=== PATIENT | female | born 1975 | race Caucasian/White ===

== ENCOUNTER 2017-12-22 15:31 | Inpatient (IN) | payer MEDICAID, OTHER ==
[2017-12-22] MEDS: HYDROmorphONE 1 MG/ML SYG IV ×2 (16:17→21:23)
[2017-12-22] MEDS: ONDANSETRON 4 MG INJ IV (16:17)
[2017-12-22] MEDS: SOD CHLORIDE 0.9% 1,000 ML IV (16:17)
[2017-12-22 16:54] LABS: ADD MAN DIFF? NO
[2017-12-22 16:58] LABS: WHITE BLOOD COUNT 11.6 10^3/ul (4.8-10.8)
[2017-12-22 16:58] LABS: BASOPHILS % 0.3 % (0.0-2.0); EOSINOPHILS # 0.3 10^3/ul (0.0-0.5); EOSINOPHILS % 2.6 % (0.0-7.0); HEMATOCRIT 35.5 % (37.0-47.0); HEMOGLOBIN 11.5 g/dl (12.0-16.0); LYMPHOCYTES % 17.3 % (15.0-51.0); MEAN CORPUSCULAR HEMOGLOBIN 28.2 pg (29.0-33.0); MEAN CORPUSCULAR HGB CONC 32.4 g/dl (32.0-37.0); MEAN PLATELET VOLUME 11.5 fl (7.4-10.4); MONOCYTE # 0.9 10^3/ul (0.3-0.9); MONOCYTES % 7.8 % (0.0-11.0); NEUTROPHIL # 8.3 10^3/ul (1.6-7.5); NEUTROPHILS % 71.7 % (39.0-77.0); PLATELET COUNT 204 10^3/UL (140-415); RED BLOOD COUNT 4.08 10^6/ul (4.20-5.40); RED CELL DISTRIBUTION WIDTH 13.4 % (11.5-14.5)
[2017-12-22 17:18] LABS: ALANINE AMINOTRANSFERASE 23 IU/L (13-69); ALBUMIN 3.6 g/dl (3.3-4.9); ALBUMIN/GLOBULIN RATIO 1.02; ALKALINE PHOSPHATASE 98 IU/L (42-121); ANION GAP 10 (8-16); ASPARTATE AMINO TRANSFERASE 19 IU/L (15-46); BILIRUBIN,INDIRECT 0.8 mg/dl (0-1.1); BILIRUBIN,TOTAL 0.8 mg/dl (0.2-1.3); BLOOD UREA NITROGEN 18 mg/dl (7-20); CARBON DIOXIDE 31 mmol/L (21-31); CHLORIDE 103 mmol/L (97-110); CREATININE 1.09 mg/dl (0.44-1.00); GLUCOSE 119 mg/dl (70-220); LIPASE 71 U/L (23-300); POTASSIUM 4.2 mmol/L (3.5-5.1); SODIUM 140 mmol/L (135-144); TOTAL PROTEIN 7.1 g/dl (6.1-8.1)
[2017-12-22] MEDS: PIPER-TAZO 3.375 GM IV (PMX) 100 ML IVPB (17:41)
[2017-12-22 18:04] LABS: ADD UMIC YES; UR ASCORBIC ACID NEGATIVE (NEGATIVE); UR BACTERIA FEW /HPF (NONE SEEN); UR BILIRUBIN (Dip) NEGATIVE (NEGATIVE); UR BLOOD (Dip) 1+ mg/dL (NEGATIVE); UR CLARITY SLIGHTLY CLOUDY (CLEAR); UR COLOR YELLOW (YELLOW); UR GLUCOSE (Dip) NEGATIVE (NEGATIVE); UR KETONES (Dip) NEGATIVE (NEGATIVE); UR LEUKOCYTE ESTERASE (Dip) NEGATIVE Leu/ul (NEGATIVE); UR NITRITE (Dip) NEGATIVE (NEGATIVE); UR RBC 1 /HPF (0-5); UR SPECIFIC GRAVITY (Dip) 1.006 (1.003-1.030); UR SQUAMOUS EPITHELIAL CELL FEW /HPF (FEW); UR TOTAL PROTEIN (Dip) 1+ mg/dl (NEGATIVE); UR UROBILINOGEN (Dip) NEGATIVE (NEGATIVE); UR WBC 2 /HPF (0-5)
[2017-12-22] MEDS ORDERED: ACETAMINOPHEN 325 MG TAB PO (18:30)
[2017-12-22] MEDS ORDERED: ONDANSETRON 4 MG INJ IV (18:30)
[2017-12-22] MEDS ORDERED: GLUCOSE GEL 15 GRAM TUBE BUCCAL (19:30)
[2017-12-22] MEDS ORDERED: DEXTROSE 50% 50 ML SYRINGE IV ×2 (19:30)
[2017-12-22] MEDS ORDERED: GLUCOSE GEL 15 GRAM TUBE PO ×2 (19:30)
[2017-12-22] MEDS ORDERED: GLUCAGON 1 MG INJ IM (19:30)
[2017-12-22] MEDS: INSULIN GLARGINE [LANtus] 3 ML PEN SC (22:56)
[2017-12-22] MEDS: INSULIN ASPART [NOVOLOG] 3 ML PEN SC (22:57)
[2017-12-23] MEDS: DEXTROSE 5%-0.45% NACL 1,000 ML IV ×3 (00:14→23:15)
[2017-12-23] MEDS: ACCU-CHEK XX (02:00)
[2017-12-23] MEDS: PIPER-TAZO 3.375 GM IV (PMX) 100 ML IVPB ×4 (02:51→23:15)
[2017-12-23] MEDS: HYDROmorphONE 1 MG/ML SYG IV ×2 (03:55→15:59)
[2017-12-23] MEDS ORDERED: METOCLOPRAMIDE 10 MG INJ (07:00)
[2017-12-23] MEDS ORDERED: DEXAMETHASONE 4 MG/ML 1 ML INJ (07:00)
[2017-12-23] MEDS: INSULIN ASPART [NOVOLOG] 3 ML PEN SC ×7 (08:15→21:00)
[2017-12-23] MEDS ORDERED: LORAZEPAM 2 MG INJ IV (15:00)
[2017-12-23] MEDS: hydrALAzine 20 MG INJ IV (15:17)
[2017-12-23] MEDS ORDERED: MIDAZOLAM 1 MG/ML 2 ML INJ (19:16)
[2017-12-23] MEDS ORDERED: FENTAnyl 50 MCG/ML VIAL (19:16)
[2017-12-23] MEDS ORDERED: ROCURONIUM 50 MG INJ (19:17)
[2017-12-23] MEDS ORDERED: ONDANSETRON 4 MG INJ (19:17)
[2017-12-23] MEDS ORDERED: LIDOCAINE 2% (SDV) 5 ML INJ (19:17)
[2017-12-23] MEDS ORDERED: PROPOFOL 20 ML (19:17)
[2017-12-23] MEDS ORDERED: SUCCINYLCHOLINE CHLORIDE 100 MG/5 ML SYG IV (19:17)
[2017-12-23] MEDS: INSULIN GLARGINE [LANtus] 3 ML PEN SC (19:47)
[2017-12-23] MEDS: LIDOCAINE 1%/EPI 30 ML INJ (19:58)
[2017-12-23] MEDS: BUPIVACAINE 0.25% (MPF) 30 ML INJ (19:59)
[2017-12-23] MEDS ORDERED: HYDROmorphONE 2 MG/ML SYG (21:47)
[2017-12-23] MEDS ORDERED: SUGAMMADEX SODIUM 200 MG/2 ML VIAL IV (21:48)
[2017-12-23] MEDS ORDERED: DIPHENHYDRAMINE 50 MG INJ IV (22:00)
[2017-12-23] MEDS ORDERED: HYDROmorphONE 1 MG/5 ML IV SYRINGE IV ×2 (22:00)
[2017-12-23] MEDS ORDERED: FENTAnyl 50 MCG/ML VIAL IV ×2 (22:00)
[2017-12-23] MEDS ORDERED: IPRATROPIUM (NEB) 0.5 MG/2.5 ML AMP HHN (22:00)
[2017-12-23] MEDS ORDERED: hydrALAzine 20 MG INJ IV (22:00)
[2017-12-23] MEDS ORDERED: MEPERIDINE 25 MG INJ IV (22:00)
[2017-12-23 22:21] LABS: ADD MAN DIFF? NO
[2017-12-23 22:23] LABS: BASOPHILS % 0.3 % (0.0-2.0); EOSINOPHILS # 0.1 10^3/ul (0.0-0.5); EOSINOPHILS % 0.8 % (0.0-7.0); HEMATOCRIT 35.7 % (37.0-47.0); HEMOGLOBIN 11.6 g/dl (12.0-16.0); LYMPHOCYTES % 8.5 % (15.0-51.0); MEAN CORPUSCULAR HEMOGLOBIN 28.6 pg (29.0-33.0); MEAN CORPUSCULAR HGB CONC 32.5 g/dl (32.0-37.0); MEAN CORPUSCULAR VOLUME 88.1 fl (82.0-101.0); MEAN PLATELET VOLUME 10.6 fl (7.4-10.4); MONOCYTE # 0.4 10^3/ul (0.3-0.9); MONOCYTES % 3.1 % (0.0-11.0); NEUTROPHIL # 10.5 10^3/ul (1.6-7.5); NEUTROPHILS % 86.7 % (39.0-77.0); PLATELET COUNT 218 10^3/UL (140-415); RED BLOOD COUNT 4.05 10^6/ul (4.20-5.40); RED CELL DISTRIBUTION WIDTH 13.2 % (11.5-14.5)
[2017-12-23 22:23] LABS: WHITE BLOOD COUNT 12.1 10^3/ul (4.8-10.8)
[2017-12-23] MEDS ORDERED: LABETALOL HCL 20MG INJ (22:32)
[2017-12-23] MEDS: LABETALOL HCL 20MG INJ IV (22:33)
[2017-12-23] MEDS: ONDANSETRON 4 MG INJ IV (22:35)
[2017-12-24] MEDS: ACCU-CHEK XX (02:00)
[2017-12-24] MEDS: DEXTROSE 5%-0.45% NACL 1,000 ML IV ×2 (03:36→14:53)
[2017-12-24] MEDS: PIPER-TAZO 3.375 GM IV (PMX) 100 ML IVPB ×3 (05:49→21:28)
[2017-12-24 06:05] LABS: ADD MAN DIFF? NO
[2017-12-24 06:15] LABS: BASOPHILS % 0.1 % (0.0-2.0); HEMATOCRIT 35.2 % (37.0-47.0); HEMOGLOBIN 11.3 g/dl (12.0-16.0); LYMPHOCYTES # 0.6 10^3/ul (0.8-2.9); LYMPHOCYTES % 5.7 % (15.0-51.0); MEAN CORPUSCULAR HEMOGLOBIN 28.3 pg (29.0-33.0); MEAN CORPUSCULAR HGB CONC 32.1 g/dl (32.0-37.0); MEAN CORPUSCULAR VOLUME 88.2 fl (82.0-101.0); MONOCYTE # 0.2 10^3/ul (0.3-0.9); MONOCYTES % 1.7 % (0.0-11.0); NEUTROPHIL # 9.9 10^3/ul (1.6-7.5); PLATELET COUNT 216 10^3/UL (140-415); RED BLOOD COUNT 3.99 10^6/ul (4.20-5.40)
[2017-12-24 06:15] LABS: WHITE BLOOD COUNT 10.7 10^3/ul (4.8-10.8)
[2017-12-24 06:54] LABS: ALANINE AMINOTRANSFERASE 65 IU/L (13-69); ALBUMIN 3.3 g/dl (3.3-4.9); ALBUMIN/GLOBULIN RATIO 0.94; ALKALINE PHOSPHATASE 152 IU/L (42-121); ANION GAP 14 (8-16); ASPARTATE AMINO TRANSFERASE 109 IU/L (15-46); BILIRUBIN,INDIRECT 0.7 mg/dl (0-1.1); BILIRUBIN,TOTAL 0.7 mg/dl (0.2-1.3); BLOOD UREA NITROGEN 13 mg/dl (7-20); CALCIUM 7.8 mg/dl (8.4-10.2); CARBON DIOXIDE 23 mmol/L (21-31); CHLORIDE 107 mmol/L (97-110); GLUCOSE 362 mg/dl (70-220); POTASSIUM 4.2 mmol/L (3.5-5.1); SODIUM 140 mmol/L (135-144); TOTAL PROTEIN 6.8 g/dl (6.1-8.1)
[2017-12-24] MEDS: HYDROCODONE/APAP (5/325) TAB PO ×2 (07:17→15:39)
[2017-12-24] MEDS: INSULIN ASPART [NOVOLOG] 3 ML PEN SC ×7 (08:01→21:28)
[2017-12-24] MEDS: hydrALAzine 20 MG INJ IV (08:18)
[2017-12-24] MEDS: metFORMIN 500 MG TAB PO ×2 (12:19→17:27)
[2017-12-24] MEDS: INSULIN GLARGINE [LANtus] 3 ML PEN SC (21:27)
[2017-12-25] MEDS: ACCU-CHEK XX (02:00)
[2017-12-25] MEDS: PIPER-TAZO 3.375 GM IV (PMX) 100 ML IVPB ×3 (06:10→21:27)
[2017-12-25] MEDS: HYDROCODONE/APAP (5/325) TAB PO (06:24)
[2017-12-25] MEDS: metFORMIN 500 MG TAB PO ×2 (08:09→17:37)
[2017-12-25] MEDS: INSULIN ASPART [NOVOLOG] 3 ML PEN SC ×7 (08:13→20:26)
[2017-12-25 11:00] LABS: ALANINE AMINOTRANSFERASE 48 IU/L (13-69); ALBUMIN/GLOBULIN RATIO 0.93; ALKALINE PHOSPHATASE 104 IU/L (42-121); ANION GAP 7 (8-16); ASPARTATE AMINO TRANSFERASE 41 IU/L (15-46); BILIRUBIN,INDIRECT 0.4 mg/dl (0-1.1); BILIRUBIN,TOTAL 0.4 mg/dl (0.2-1.3); BLOOD UREA NITROGEN 10 mg/dl (7-20); CALCIUM 7.9 mg/dl (8.4-10.2); CARBON DIOXIDE 30 mmol/L (21-31); CHLORIDE 107 mmol/L (97-110); CREATININE 1.11 mg/dl (0.44-1.00); GLUCOSE 142 mg/dl (70-220); POTASSIUM 4.2 mmol/L (3.5-5.1); SODIUM 140 mmol/L (135-144); TOTAL PROTEIN 6.2 g/dl (6.1-8.1)
[2017-12-25] MEDS: POLYETHYLENE GLYCOL 17 GM PACKET PO (17:37)
[2017-12-25] MEDS: INSULIN GLARGINE [LANtus] 3 ML PEN SC (20:26)
[2017-12-26] MEDS: ACCU-CHEK XX (02:00)
[2017-12-26] MEDS: PIPER-TAZO 3.375 GM IV (PMX) 100 ML IVPB ×2 (06:17→14:10)
[2017-12-26] MEDS: metFORMIN 500 MG TAB PO ×2 (08:00→18:14)
[2017-12-26] MEDS: HYDROCODONE/APAP (5/325) TAB PO (08:01)
[2017-12-26] MEDS: INSULIN ASPART [NOVOLOG] 3 ML PEN SC ×7 (08:03→20:23)
[2017-12-26] MEDS: MAGNESIUM HYDROXIDE 30ML CUP PO (09:59)
[2017-12-26] MEDS: hydrALAzine 20 MG INJ IV (09:59)
[2017-12-26] MEDS: LISINOPRIL 20 MG TAB PO (10:41)
[2017-12-26] MEDS: GABAPENTIN 300 MG CAP PO ×2 (12:17→20:26)
[2017-12-26] MEDS: INSULIN GLARGINE [LANtus] 3 ML PEN SC (20:15)
[2017-12-27] MEDS: ACCU-CHEK XX (02:00)
[2017-12-27 05:43] LABS: ADD MAN DIFF? NO
[2017-12-27 05:49] LABS: BASOPHIL # 0.1 10^3/ul (0.0-0.1); BASOPHILS % 0.5 % (0.0-2.0); EOSINOPHILS # 0.4 10^3/ul (0.0-0.5); EOSINOPHILS % 4.7 % (0.0-7.0); HEMATOCRIT 32.5 % (37.0-47.0); HEMOGLOBIN 10.6 g/dl (12.0-16.0); LYMPHOCYTES # 2.9 10^3/ul (0.8-2.9); LYMPHOCYTES % 32.1 % (15.0-51.0); MEAN CORPUSCULAR HGB CONC 32.6 g/dl (32.0-37.0); MEAN CORPUSCULAR VOLUME 85.8 fl (82.0-101.0); MEAN PLATELET VOLUME 10.1 fl (7.4-10.4); MONOCYTE # 0.7 10^3/ul (0.3-0.9); MONOCYTES % 7.1 % (0.0-11.0); NEUTROPHILS % 55.4 % (39.0-77.0); PLATELET COUNT 234 10^3/UL (140-415); RED BLOOD COUNT 3.79 10^6/ul (4.20-5.40); RED CELL DISTRIBUTION WIDTH 13.2 % (11.5-14.5)
[2017-12-27 05:49] LABS: WHITE BLOOD COUNT 9.1 10^3/ul (4.8-10.8)
[2017-12-27 06:22] LABS: ANION GAP 10 (8-16); BLOOD UREA NITROGEN 16 mg/dl (7-20); CARBON DIOXIDE 29 mmol/L (21-31); CHLORIDE 106 mmol/L (97-110); CREATININE 0.98 mg/dl (0.44-1.00); GLUCOSE 110 mg/dl (70-220); MAGNESIUM 1.6 mg/dl (1.7-2.5); POTASSIUM 4.5 mmol/L (3.5-5.1); SODIUM 140 mmol/L (135-144)
[2017-12-27 07:51] LABS: HEMOGLOBIN A1C 7.9 % (0-5.9)
[2017-12-27] MEDS: GABAPENTIN 300 MG CAP PO ×2 (08:03→12:11)
[2017-12-27] MEDS: metFORMIN 500 MG TAB PO (08:04)
[2017-12-27] MEDS: LISINOPRIL 20 MG TAB PO (08:04)
[2017-12-27] MEDS: INSULIN ASPART [NOVOLOG] 3 ML PEN SC ×4 (08:09→12:11)
[2017-12-27] MEDS: MAGNESIUM OXIDE 400 MG TAB PO (12:16)
== END 2017-12-27 13:00 | disposition home or self-care (01) | DRG 419 ==
LOC: FTE 15:31 → MS2 18:01
PROC: 0FT44ZZ Resection of Gallbladder, Percutaneous Endoscopic Approach (ICD-10-PCS; principal; 2017-12-23 16:00)
PROC: 0DNV4ZZ Release Mesentery, Percutaneous Endoscopic Approach (ICD-10-PCS; 2017-12-23 16:00)
PROC: 0DNL4ZZ Release Transverse Colon, Percutaneous Endoscopic Approach (ICD-10-PCS; 2017-12-23 16:00)
DX: K80.00 Calculus of gallbladder with acute cholecystitis without obstruction (principal); N20.0 Calculus of kidney; I16.0 Hypertensive urgency; K66.0 Peritoneal adhesions (postprocedural) (postinfection); K76.0 Fatty (change of) liver, not elsewhere classified; I10 Essential (primary) hypertension; E11.42 Type 2 diabetes mellitus with diabetic polyneuropathy; Z79.4 Long term (current) use of insulin; Z89.411 Acquired absence of right great toe
CPT/HCPCS: 73630-50; 76705; 80048; 80053; 81001; 82962; 83036; 83690; 83735; 84100; 84703; 85025; 88304; 93970; 96374; 96375; 97162; 99285-25

== ENCOUNTER 2018-10-14 09:26 | Emergency (ER) | payer MEDICAID ==
[2018-10-14] MEDS: IBUPROFEN 600 MG TAB PO (10:27)
[2018-10-14] MEDS: CEPHALEXIN 500 MG CAP PO (10:27)
[2018-10-14] MEDS: HYDROCODONE/APAP (5/325) TAB PO (10:27)
== END 2018-10-14 10:38 | disposition home or self-care (01) ==
LOC: FTE 10:38
DX: K08.89 Other specified disorders of teeth and supporting structures (principal); E11.9 Type 2 diabetes mellitus without complications; Z79.4 Long term (current) use of insulin
CPT/HCPCS: 99283; Z7502